=== PATIENT | male | born 2005 | race Caucasian/White ===

== ENCOUNTER 2025-02-23 15:34 | Emergency (ER) | payer OTHER, SELFPAY ==
[2025-02-23 15:38] VITALS: BP 139/70; PULSE 85; RESP 18; TEMP 36.3; O2SAT 100; BMI 25.0
[2025-02-23 16:15] VITALS: O2SAT 96
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
[2025-02-23] MEDS: Acetaminophen 500 MG Tablet 1000 MG PO (16:56)
[2025-02-23] MEDS: Ondansetron ODT 4 MG Tablet PO (16:56)
[2025-02-23 18:35] VITALS: BP 128/78; PULSE 98; RESP 14; TEMP 36.6; O2SAT 97
== END 2025-02-23 18:56 | disposition home or self-care (01) ==
PROVIDERS: Emergency Provider Emergency Medicine; Visit Provider Emergency Medicine
DX: S06.0X0A Concussion without loss of consciousness, initial encounter (principal); V86.06XA Driver of dirt bike or motor/cross bike injured in traffic accident, initial encounter; Y93.55 Activity, bike riding; Y92.89 Other specified places as the place of occurrence of the external cause
CPT/HCPCS: 70450; 72125; 99283